=== PATIENT | female | born 1965 | race Caucasian/White ===

== ENCOUNTER 2018-01-07 14:44 | Emergency (ER) | payer OTHER ==
--- NOTE | 2018-01-07 15:06 | EDPHY ---
H & P Time Seen by Provider: 01/07/18 14:57 HPI/ROS: Chief complaint. Dizzy HPI. 52-year-old female presents emergency department with 4 weeks dizziness and vertigo. Initially symptoms waxed and waned. She saw her PCP and then referred ENT. She had testing in maneuvering done for BPPV with some relief and then was doing assigned exercises for 4 days. However her symptoms have been constant since January 03 and seemed to be getting worse. She also was seen at urgent care and started on antibiotics as she had some ear discomfort though the physician felt her ears looked okay. Maybe this is helped her ear pain a little bit. She has been using Dramamine and meclizine. Her sense of the dizziness is described as spinning however it is not worse with head position or movement but is worse when she stands up. Slightly off balance. Slightly fuzzy vision. No recent URI symptoms. No fevers chest discomfort trouble breathing abdominal pain. No focal weakness or paresthesias. Patient does have a history of trigeminal neuralgia and had decompressive surgery and then vocal cord surgery. She does not have pain in her face suggestive of the trigeminal neuralgia ROS Constitutional. no fever/chills, no weakness Eyes. no problems with vision ENT. no sore throat, no nasal drainage Cardiovascular. no chest pain Respiratory. no shortness of breath, no cough Abdominal. no abdominal pain, no nausea/vomiting, no diarrhea . no problems urinating MS. no calf pain/swelling, no neck/back pain, no joint pain Skin. no rash Lymph. no swollen glands Neuro. Dizziness and vertigo Past Medical/Surgical History: Tried a germinal neuralgia with decompressive surgery, appendectomy Social History: , nonsmoker, no alcohol Physical Exam: General Appearance: Alert well-developed female moderate distress vital signs are stable Eyes: Pupils equal and round no pallor or injection. ENT, Mouth: Mucous membranes are moist. Tympanic membranes are normal Respiratory: There are no retractions, lungs are clear to auscultation. Cardiovascular: Regular rate and rhythm. Gastrointestinal: Abdomen is soft and nontender, no masses, bowel sounds normal. Neurological: Awake and alert, sensory and motor exams grossly normal. Speech is normal. Cranial nerves are normal. Sensation to face is symmetrical. No pronator drift. [id number] and [id number] are intact bilaterally Skin: Warm and dry, no rashes. Musculoskeletal: Neck is supple nontender. Extremities symmetrical, full range of motion. Psychiatric: Patient is oriented X 3, there is no agitation. Constitutional: Initial Vital Signs Temperature (C) 36.6 C 01/07/18 14:51 Heart Rate 86 01/07/18 14:51 Respiratory Rate 16 01/07/18 14:51 Blood Pressure 159/101 H 01/07/18 14:51 O2 Sat (%) 97 01/07/18 14:51 O2 Delivery Mode Room Air Allergies/Adverse Reactions: morphine Allergy (Verified 01/07/18 14:50) Penicillins Allergy (Verified 01/07/18 14:50) prochlorperazine [From Compazine] Allergy (Verified 01/07/18 14:50) Home Medications: Medication Instructions Recorded Clindamycin 01/07/18 Dramamine 01/07/18 Ibuprofen 01/07/18 LORazepam [Ativan] 1 mg PO Q6-8PRN PRN #10 tab 01/07/18 Meclizine HCl [Meclizine HCl 25 mg 25 mg PO TID #14 tab 01/07/18 (RX,OTC)] Medical Decision Making - Diagnostics EKG Interpretation: EKG interpreted by me shows normal sinus rhythm normal interval. Borderline left axis deviation. QRS otherwise normal there is no significant ST elevation or depression. No arrhythmia. The rate is 79 Imaging Results: Imaging Impressions Brain MRI 01/07/18 15:31 Impression: Normal MRI of the brain (without and with contrast). Findings were discussed with CUCO SNYDER MD at 17:38, on 01/07/2018. MRI reviewed by me and discussed with Dr. Landa is normal Procedures: IV normal saline, monitor Ativan orally ED Course/Re-evaluation: Re-evaluation 5:45 p.m. Patient is stable. Patient, her , and I discussed imaging and lab results. We discussed treat criteria for return importance of follow-up and further evaluation. She expresses understanding and agreement Differential Diagnosis: I considered intracranial bleeding and tumor, benign positional vertigo, sequelae of trigeminal neuralgia. - Data Points Laboratory Results: Laboratory Results 01/07/18 15:10 01/07/18 15:10 01/07/18 01/07/18 01/07/18 16:27 15:10 15:10 WBC 6.72 10^3/uL 10^3/uL (3.80-9.50) RBC 4.47 10^6/uL 10^6/uL (4.18-5.33) Hgb 14.3 g/dL g/dL (12.6-16.3) Hct 41.8 % % (38.0-47.0) MCV 93.5 fL fL (81.5-99.8) MCH 32.0 pg pg (27.9-34.1) MCHC 34.2 g/dL g/dL (32.4-36.7) RDW 12.8 % % (11.5-15.2) Plt Count 253 10^3/uL 10^3/uL (150-400) MPV 10.2 fL fL (8.7-11.7) Neut % (Auto) 53.8 % % (39.3-74.2) Lymph % (Auto) 32.3 % % (15.0-45.0) [place] % (Auto) 12.2 % % (4.5-13.0) Eos % (Auto) 1.0 % % (0.6-7.6) Baso % (Auto) 0.6 % % (0.3-1.7) Nucleat RBC Rel Count 0.0 % % (0.0-0.2) Absolute Neuts (auto) 3.61 10^3/uL 10^3/uL (1.70-6.50) Absolute Lymphs (auto) 2.17 10^3/uL 10^3/uL (1.00-3.00) Absolute Monos (auto) 0.82 10^3/uL H 10^3/uL (0.30-0.80) Absolute Eos (auto) 0.07 10^3/uL 10^3/uL (0.03-0.40) Absolute Basos (auto) 0.04 10^3/uL 10^3/uL (0.02-0.10) Absolute Nucleated RBC 0.00 10^3/uL 10^3/uL (0-0.01) Immature Gran % 0.1 % % (0.0-1.1) Immature Gran # 0.01 10^3/uL 10^3/uL (0.00-0.10) Sodium 132 mEq/L L mEq/L (135-145) Potassium 4.2 mEq/L mEq/L (3.3-5.0) Chloride 101 mEq/L mEq/L (97-110) Carbon Dioxide 24 mEq/l mEq/l (22-31) Anion Gap 7 mEq/L L mEq/L (8-16) BUN 14 mg/dL mg/dL (7-23) Creatinine 0.7 mg/dL mg/dL (0.6-1.0) Estimated GFR > 60 Glucose 105 mg/dL H mg/dL (70-100) Calcium 9.5 mg/dL mg/dL (8.5-10.4) POC Troponin I 0.00 ng/mL ng/mL (0.00-0.08) Medications Given: Discontinued Medications Sodium Chloride (Ns) 1,000 mls @ 0 mls/hr IV ONCE ONE; Wide Open PRN Reason: Protocol Stop: 01/07/18 15:32 Last Admin: 01/07/18 15:38 Dose: 1,000 mls Lorazepam (Ativan) 1 mg PO EDNOW ONE Stop: 01/07/18 15:33 Last Admin: 01/07/18 15:38 Dose: 1 mg Point of Care Test Results: Chemistry 01/07/18 16:27 POC Troponin I 0.00 ng/mL ng/mL (0.00-0.08) Departure - Departure Disposition: Home, Routine, Self-Care Clinical Impression: Vertigo Condition: Good Instructions: Vertigo (ED) Additional Instructions: Continue meclizine every 8 hr for dizziness Ativan 1 pill every 6-8 hours to also help with dizziness. Drink plenty of fluids and stay hydrated. Get plenty of sleep. Return for worsening symptoms. Re-evaluation by ENT in the next 2 days without fail Referrals: Pro Prater MD [Primary Care Provider] - As per Instructions Anton Guillen MD [Medical Doctor] - As per Instructions Prescriptions: LORazepam [Ativan] 1 mg PO Q6-8PRN PRN #10 tab PRN Reason: Dizziness Meclizine HCl [Meclizine HCl 25 mg (RX,OTC)] 25 mg PO TID #14 tab
--- NOTE | 2018-01-07 15:28 | CPEKG ---
Heart Rate: 79 RR Interval: 759 P-R Interval: 156 QRSD Interval: 84 QT Interval: 384 QTC Interval: 441 P [place]: 54 QRS [place]: -21 T Wave [place]: 53 EKG Severity - OTHERWISE NORMAL ECG - EKG Impression: SINUS RHYTHM EKG Impression: BORDERLINE LEFT AXIS DEVIATION Electronically Signed By: David Helton 07-Jan-2018 15:36:52
[2018-01-07] MEDS ORDERED: NS 1,000 ML IV ONE (15:31)
[2018-01-07] MEDS ORDERED: LORazepam 1 MG TAB PO ONE (15:32)
[2018-01-07 15:40] LABS: PLATELET COUNT 253 10^3/uL (150-400)
[2018-01-07] MEDS ORDERED: GADOBUTROL 10 ML VIAL IVP ONE (16:45)
[2018-01-07 18:10] VITALS: BP 152/78
== END 2018-01-07 18:10 | disposition home or self-care (01) ==
LOC: EDBD 14:44
DX: R42 Dizziness and giddiness (principal); E86.9 Volume depletion, unspecified
CPT/HCPCS: 84484-PO; A9585